=== PATIENT | female | born 1990 | race Caucasian/White ===

== ENCOUNTER → 2017-05-05 | Outpatient (CLI) | payer BC | LOC: CARD 10:06 | PROVIDERS: ATTEND Internal Medicine Cardiovascular Disease | DX: R07.9 Chest pain, unspecified (principal) | CPT/HCPCS: 93017 ==

== ENCOUNTER → 2018-05-30 | Outpatient (CLI) | payer BC ==
--- NOTE | 2018-05-30 19:49 | Diagnostic Imaging Report ---
INDICATION: Right foot pain. AP, oblique, and lateral views of the right foot are obtained. No fracture or acute bony abnormality is seen. Joint spaces are unremarkable. IMPRESSION: Negative right foot. Dictated by: Dictated on workstation # [id number]
== END ==
LOC: RAD 16:44
PROVIDERS: ATTEND Family Medicine
DX: M79.671 Pain in right foot (principal)
CPT/HCPCS: 73630